=== PATIENT | female | born 1960 | race Caucasian/White ===

== ENCOUNTER 2017-05-06 06:55 | Emergency (ER) | payer SELFPAY ==
[2017-05-06 07:03] VITALS: BP 127/78
== END 2017-05-06 07:30 | disposition home or self-care (01) ==
LOC: ED 06:55
DX: H92.02 Otalgia, left ear (principal); I10 Essential (primary) hypertension; E11.9 Type 2 diabetes mellitus without complications; Z79.84 Long term (current) use of oral hypoglycemic drugs